=== PATIENT | female | born 1970 | race Hispanic/Latino ===

== ENCOUNTER → 2018-06-15 | Day surgery (SDC) | payer BC ==
[~2018-06-15] MED LIST: ATORVASTATIN CA20 MG PO; CETIRIZINE HCL10 MG PO; FENTANYL CITRATE/PF 100MCG/2 ML INJ ONE; IBUPROFEN400 MG PO; LO LOESTRIN FE1 EACH PO; MIDAZOLAM HCL 2 MG/2 ML VIAL ONE; OMEPRAZOLE40 MG PO; PANTOPRAZOLE SO40 MG PO; PROBIOTIC DIGE1 EACH PO; PROPOFOL IV EMULSION 10 MG/ML 20 ML VIAL ONE; SUCRALFATE1 GM PO; VITAMIN D400 UNIT PO
--- OUTSIDE RECORDS SUMMARY | 2018-06-15 13:58 | XMS REPORT ---
Author Author [facility] [place] Address Unknown Phone Unavailable Care Team Providers Care Produce Team Member Name Role Phone Unavailable Unavailable Problems This patient has no known problems. Allergies, Adverse Reactions, Alerts This patient has no known allergies or adverse reactions. Medications This patient has no known medications. Encounters Start Date/Time End Date/Time Encounter Type Admission Type Attending [facility] Facility Care Department Encounter ID 2017-05-20 15:16:02 2017-05-20 15:16:02 Outpatient [facility] [id number] 2017-05-02 00:00:00 2017-05-02 00:00:00 Outpatient [facility] [id number] 2017-04-21 00:00:00 2017-04-21 00:00:00 Outpatient [facility] [id number] 2017-04-11 00:00:00 2017-04-11 00:00:00 Outpatient [facility] [id number] 2017-03-24 08:18:22 2017-03-24 08:18:22 Outpatient [facility] [id number] 2017-03-16 11:37:17 2017-03-16 11:37:17 Outpatient [facility] [id number] 2015-11-12 11:35:40 2015-11-12 11:35:40 Outpatient [facility] [id number]
[2018-06-15 18:00] VITALS: BP 118/76
--- NOTE | 2018-06-16 02:12 | Operative Report ---
DATE OF PROCEDURE: 06/15/2018 SURGEON: Joce Aldridge MD PROCEDURES: Colonoscopy with polypectomy, biopsies, and esophageal dilatation. REFERRING PHYSICIAN: Dr. Trina Schwartz. INDICATION FOR PROCEDURE: Severe acid reflux, bloating, dysphagia. MEDICATIONS: The patient was done under MAC. Please see anesthesiologist's note. PROCEDURE IN DETAIL: With the patient in the left lateral decubitus position, the flexible fiberoptic Olympus gastroscope was introduced into the esophagus under direct visualization without any difficulty. There was some patchy erythema noted in distal esophagus. A mild stricture noted at the GE junction, that was dilated to size 52-[place]. The scope was then advanced with ease into her stomach. Mucosa overlying the antrum and the body revealed some patchy intense erythema, low-grade to moderate edema and biopsies were obtained and sent to stain for Helicobacter pylori. Numerous polyps were noted in the body of the stomach. Multiple were removed per snare electrocautery. Pylorus was of normal contour and shape, was intubated with ease and the scope was advanced all the way to the second portion of the duodenum. The scope was then withdrawn slowly. Mucosa overlying the proximal, second portion and the bulb grossly appeared to be within normal limits. Biopsies were obtained to rule out sprue. The scope was then withdrawn back into the stomach and retroflexed. Mucosa overlying the fundus and cardia grossly appeared to be within normal limits. The scope was then straightened out. It was subsequently withdrawn. The patient tolerated the procedure well. IMPRESSION: 1. Distal esophagitis, mild. 2. Esophagus dilated to size 52-[place]. 3. Gastritis, biopsied. Biopsies sent to stain for Helicobacter pylori. 4. Gastric polyps, body, numerous, multiple removed per snare electrocautery. 5. Rule out sprue. PLAN: Follow up histology. Increase Protonix to 40 mg one p.o. a.c. b.i.d. Joce Aldridge MD [facility] [place] /[id number]
== END | disposition home or self-care (01) ==
LOC: OR 13:55
PROVIDERS: ATTEND Internal Medicine Gastroenterology
DX: K21.0 Gastro-esophageal reflux disease with esophagitis (principal); K31.7 Polyp of stomach and duodenum; K29.70 Gastritis, unspecified, without bleeding; K22.2 Esophageal obstruction; I10 Essential (primary) hypertension; R73.03 Prediabetes; F41.9 Anxiety disorder, unspecified; Z88.8 Allergy status to other drugs, medicaments and biological substances
CPT/HCPCS: 43239; 43251; 43450; 81025; J2250; J2704; 43235

== ENCOUNTER → 2018-07-10 | Outpatient (CLI) | payer BC ==
[~2018-07-10] MED LIST changes: -FENTANYL CITRATE/PF 100MCG/2 ML INJ ONE; -MIDAZOLAM HCL 2 MG/2 ML VIAL ONE; -PROPOFOL IV EMULSION 10 MG/ML 20 ML VIAL ONE
--- NOTE | 2018-07-10 12:21 | Diagnostic Imaging Report ---
EXAM: Complete Abdominal Ultrasound INDICATION: ^[id number] ^[id number] ^EPIG PAIN,RUQ ABD PAIN COMPARISON: None. TECHNIQUE: Transverse and longitudinal images of the upper abdomen were obtained. FINDINGS: Liver: Size: 12.6 cm in the right midclavicular line, normal Appearance: Normal echogenicity, smooth contour Mass: No focal masses Spleen: Size: 7.4 cm in length, normal Echogenicity: Normal Mass: No focal masses Gallbladder: Stones/Sludge: Small amount of sludge noted in the gallbladder lumen. No echogenic stones. Wall: 0.2 cm Appearance: No wall thickening, pericholecystic fluid or hydrops. Sonographic Jensen's Sign: Negative Bile Ducts: Intrahepatic Ducts: No dilatation Extrahepatic Ducts: Common bile duct measures 0.3 cm, no dilatation Pancreas: Visualized portions of the neck and proximal body are unremarkable. Kidneys: Length: Right 10.9 cm Left 11.4 cm Echogenicity: Normal Collecting System: No hydronephrosis Stone: None Cyst/Mass: None Vessels: Aorta: Visualized portions are normal Inferior Vena Cava: Visualized portions are normal Main Portal Vein: 0.8 cm, normal size with hepatopetal flow. Free Fluid: No ascites or pleural effusion IMPRESSION: 1. Small amount of sludge in the gallbladder. No echogenic stones. No sonographic evidence of cholecystitis. Signed by: Dr. Zach Malhotra M.D. on 07/10/2018 12:17 PM
== END ==
LOC: US 09:28
PROVIDERS: ATTEND Internal Medicine Gastroenterology
DX: R10.13 Epigastric pain (principal); R10.11 Right upper quadrant pain
CPT/HCPCS: 76700

== ENCOUNTER → 2018-07-31 | Outpatient (CLI) | payer BC ==
--- NOTE | 2018-07-31 14:46 | Diagnostic Imaging Report ---
Hepatobiliary Scan with Gallbladder Ejection Fraction Clinical information: 48 M with gallbladder sludge; RUQ abdominal pain x 3 weeks. Technique: Following intravenous administration of 6.6 millicuries of Tc-99m mebrofenin, dynamic images of the abdomen in the anterior projection were obtained through 30 minutes. Sincalide (CCK analog) 1.4 micrograms was administered intravenously over 30 minutes with additional imaging for determination of gallbladder ejection fraction. Discussion: Perfusion of the liver is normal. Extraction of tracer by the liver parenchyma is normal. Tracer appears promptly within the biliary tract. The gallbladder begins to fill by 10 minutes post injection of tracer and fills adequately. Tracer is seen in the small bowel by 20 minutes. The gallbladder ejection fraction with sincalide is 12% (normal greater than 40%). Impression: 1. Filling of the gallbladder excludes acute cystic duct obstruction/acute cholecystitis. 2. The decreased gallbladder ejection fraction of 12% supports the clinical diagnosis of chronic cholecystitis/gallbladder dyskinesia. Signed by: Dr. Rafia Staley M.D. on 07/31/2018 2:43 PM
== END ==
LOC: NM 08:45
PROVIDERS: ATTEND Internal Medicine Gastroenterology
DX: R10.11 Right upper quadrant pain (principal); K82.8 Other specified diseases of gallbladder
CPT/HCPCS: 78227; A9537

== ENCOUNTER → 2018-08-17 | Day surgery (SDC) | payer BC ==
[~2018-08-17] MED LIST changes: +BUPIVACAINE 0.25%/EPI 30ML SDV INJ ONE; +DEXAMETHASONE SOD PHOS INJ 4 MG/ML VIAL ONE; +FENTANYL CITRATE/PF 100MCG/2 ML INJ ONE; +HYDROMORPHONE 2MG/ML 2 MG/ML ML ONE; +KETOROLAC TROMETHAMINE 30 MG/ML VIAL ONE; +LIDOCAINE HCL 2% LOCAL INJ 5 ML SDV VIAL INJ ONE; +MEPERIDINE HCL INJ 25 MG/ML VIAL ONE; +MIDAZOLAM HCL 2 MG/2 ML VIAL ONE; +ONDANSETRON HCL INJ 2MG/ML 2ML 2 MG/ML VIAL ONE; +PROPOFOL IV EMULSION 10 MG/ML 20 ML VIAL ONE; +ROCURONIUM BROMIDE 10 MG/ML 5ML VIAL ONE; +SEVOFLURANE INHAL SOLN 250 ML PEN BTL ONE
[2018-08-17 13:32] VITALS: BP 111/73
--- NOTE | 2018-08-17 19:59 | Operative Report ---
DATE OF PROCEDURE: 08/17/2018 SURGEON: Shaji Lund MD PREOPERATIVE DIAGNOSIS: Biliary dyskinesia. POSTOPERATIVE DIAGNOSIS: Biliary dyskinesia. PROCEDURE PERFORMED: Laparoscopic cholecystectomy. COMPUTER SYSTEMS ENGINEER: MANAN Saul. ESTIMATED BLOOD LOSS: Minimal. DRAINS: None. COMPLICATIONS: None. INDICATION AND FINDINGS: The patient is a 48-year-old female, who complained of abdominal pain associated with fatty food intolerance and had an ejection fraction of 12%. No gallstones. EGD revealed gastritis. Despite of optimal medical treatment, she persisted with pain. Cholecystectomy was requested. Preoperatively, she understood that there were no guarantees made regarding surgical results. DESCRIPTION OF PROCEDURE: With the patient lying on the operative table in the supine position after administration of general endotracheal anesthesia, she was prepped and draped for laparoscopic cholecystectomy. The procedure was begun by establishing the pneumoperitoneum in the right upper quadrant because of previous pelvic surgery. Pneumoperitoneum was insufflated to 15 mmHg and then the 5 mm trocar placed under direct vision with the camera. We placed the 10/11 trocar in the umbilical side and then 10/11 trocar in the subxiphoid region and right anterior axillary line 5 mm trocar was final. Laparoscopy revealed that she had multiple adhesions in the area of the of right upper quadrant including omental adhesions to the gallbladder, which appeared to be normal by visual examination. Rest of the laparoscopy showed no major abnormality. There were no adnexal masses. The uterus was devoid of any masses also. We went ahead and lysed the adhesions of the gallbladder to the omentum and to the peritoneum in order to prevent any bleeding from the liver capsule as we retracted the gallbladder, after we did that, retracted the gallbladder cephalad with grasper through the two 5 mm trocars and then began the dissection exposing the cystic duct, which was nondilated and then cystic artery was identified. Posterior to that, it was small. We transected the cystic duct with three titanium clips and the artery was reversed, the small one was cauterized as it was too small to accept any staple. Then, we removed the gallbladder from the liver bed using electrocautery dissection with the scissors and then removed through the umbilical port. We then reinspected the operative field. There was some oozing coming from the gallbladder fossa that was cauterized and we placed Surgicel in that location. After we had irrigated and removed all effluent fluid, we went ahead and released the pneumoperitoneum under direct vision with the camera and closed the wound using 0-Vicryl for the umbilical fascia and 3-0 Vicryl for the subcutaneous tissue in that location as well as subxiphoid port. Skin of all the port was closed using ryder. A 0.25% Marcaine with epinephrine was used as local block at the end of the case. The patient tolerated the procedure well, taken to recovery room in stable condition. MD MONISHA Melendez/JIMY /[id number]
== END | disposition home or self-care (01) ==
LOC: OR 09:26
PROVIDERS: ATTEND Surgery
DX: K82.4 Cholesterolosis of gallbladder (principal); K82.8 Other specified diseases of gallbladder; K29.70 Gastritis, unspecified, without bleeding
CPT/HCPCS: 47562; 81025; 88304; C1766; J1100; J1170; J1885; J2001; J2175; J2250; J2405; J2704